=== PATIENT | male | born 1985 | race African-American/Black ===

== ENCOUNTER 2023-06-13 09:39 | Emergency (ER) | payer MEDICAID ==
[~2023-06-13] VITALS: Ht 170.2 cm; Wt 100.0 kg
[2023-06-13 09:41] VITALS: TEMP 97.9
[2023-06-13 10:41] VITALS: BP 139/82; PULSE 60; RESP 16
[2023-06-13] MEDS ORDERED: LIDO700A15 TP (10:44)
[2023-06-13] MEDS ORDERED: IBUP-1492 PO (10:44)
[2023-06-13] MEDS ORDERED: LIDOCAINE 5% TRANSDERMAL PATCH TD ONE (10:45)
[2023-06-13] MEDS ORDERED: IBUPROFEN 600 MG TABLET PO ONE (10:45)
== END 2023-06-13 11:08 | disposition home or self-care (01) ==
LOC: EMS 09:41
DX: S39.012A Strain of muscle, fascia and tendon of lower back, initial encounter (principal); F17.210 Nicotine dependence, cigarettes, uncomplicated; X58.XXXA Exposure to other specified factors, initial encounter; Y93.89 Activity, other specified; Y92.89 Other specified places as the place of occurrence of the external cause; Y99.8 Other external cause status
CPT/HCPCS: 99282; Z7502; Z7610